=== PATIENT | female | born 1965 | race Hispanic/Latino ===

== ENCOUNTER 2017-08-15 15:34 | Emergency (ER) | payer BC ==
[~2017-08-15] VITALS: Ht 160 cm; Wt 107.5 kg
[~2017-08-15 15:34] MED LIST: HYDROCHLOROTHIA25 MG PO
[2017-08-15 16:01] LABS: HEMATOCRIT 41.8 % (36.0-46.0); HEMOGLOBIN 14.4 G/DL (11.9-15.5); MCH 29.1 PG (29.0-34.0); MCHC 34.4 G/DL (30.0-36.0); MCV 84.6 FL (83-99); PLATELET COUNT 262 K/uL (156-360); RBC DIS.WIDTH-CV 12.4 % (11.8-14.6); RBC DIS.WIDTH-SD 38.3 % (39-53); RED BLOOD COUNT 4.94 M/uL (3.80-5.20); WHITE BLOOD COUNT 7.5 K/uL (4.1-10.2)
[2017-08-15 16:11] LABS: CHLORIDE 105 mEq/L (99-109); POTASSIUM 4.1 mEq/L (3.7-5.4); SODIUM 140 mEq/L (136-147)
[2017-08-15 16:12] LABS: GLUCOSE 97 mg/dL (70-99)
[2017-08-15 16:16] LABS: CREATININE 0.7 mg/dL (0.6-1.3); GFR ESTIMATE (CALCULATED) > 59 mL/min/
[2017-08-15 16:17] LABS: UREA NITROGEN (BUN) 10 mg/dL (9-23)
[2017-08-15 16:20] LABS: TROP-I INTERPRETATION NEGATIVE; TROPONIN-I < 0.01 ng/mL (0.0-0.30)
[2017-08-15] MEDS ORDERED: LISINOPRIL5 MG PO (19:46)
[2017-08-15 19:57] VITALS: BP 173/92
== END 2017-08-15 19:58 | disposition home or self-care (01) ==
LOC: EME 15:34
DX: R51 Headache (principal); I10 Essential (primary) hypertension; K21.9 Gastro-esophageal reflux disease without esophagitis; Z88.6 Allergy status to analgesic agent
CPT/HCPCS: 70450; 71046; 80048; 84484; 85027; 93005; 99281; 99284